=== PATIENT | male | born 1960 | race Caucasian/White ===

== ENCOUNTER 2020-07-26 03:36 | Outpatient (CLI) | payer BC, SELFPAY ==
[2020-07-26 19:05] LABS: SARS-CoV-2 RNA PCR Negative
== END 2020-07-26 03:37 | disposition home or self-care (01) ==
LOC: ANHCOVIDDT 03:37
PROVIDERS: PCP Family Medicine; Visit Provider Internal Medicine Gastroenterology
DX: Z01.812 Encounter for preprocedural laboratory examination (principal); Z20.828 Contact with and (suspected) exposure to other viral communicable diseases
CPT/HCPCS: 87635; C9803; U0003

== ENCOUNTER 2020-07-28 00:54 | Day surgery (SDC) | payer BC, SELFPAY ==
[2020-07-20 15:18] VITALS: BMI 27.0
[2020-07-28 10:05] VITALS: BP 153/85; PULSE 73; RESP 12; TEMP 36.2; O2SAT 99; BMI 28.2
--- NOTE | 2020-07-28 10:22 | WPDGICN ---
Assessment and Plan Assessment and plan (1) History of colon polyps: Code(s): Z86.010 - Personal history of colonic polyps Status: Acute Assessment and Plan: Patient has a history of colon polyps over several previous endoscopies. Most recent exam was 6 years ago. Plan is for surveillance colonoscopy at this time. GI Consult Note Consult date/time: 07/28/20 10:22 HPI: Ceferino Gonzalez is a 60 year old male seen in evaluation at the request of Dr Multani. Patient presents for colonoscopy. Patient has a history of colon polyps. He has had polyps on several previous colonoscopies. Most recently in [place]. Family history is significant his grandfather had colon cancer at age 53. There is no other known family members with colon polyps or cancer. Patient states that his current weight appetite bowel movements are normal. He denies abdominal pain. He denies bleeding. Review of Systems Review of Systems: All systems reviewed & are unremarkable except as noted in HPI and below PMFSH Social History Social History Years smoked: 30 Smoking status: Light tobacco smoker Tobacco type: cigars Alcohol intake: current Drinks per week: 14 Alcohol use details: wine Living arrangements: with family Gender identity (if verbalized by the patient): Male Spiritual care concerns: No Meds Home Medications and Allergies Home Medications Medication Instructions Recorded Confirmed Type aspirin [Adult Low Dose Aspirin] See Rx Instructions .ROUTE .COMPLEX 07/20/20 07/28/20 History lisinopril 30 mg PO DAILY 07/20/20 07/28/20 History Allergies Allergy/AdvReac Type Severity Reaction Status Date / Time No Known Allergies Allergy Verified 07/28/20 10:04 Vital Signs Vital Signs - 24 hr 07/28/20 10:05 Temperature 97.2 F L Pulse Rate 73 Respiratory Rate 12 Blood Pressure 153/85 H Pulse Oximetry 99 Exam Narrative: Exam Narrative: physical exam reveals Vital Signs to be stable. HEENT exam unremarkable. Lungs are clear to auscultation and percussion. Heart is without murmur or extra sounds. Abdominal exam bowel sounds are present soft nontender with no organomegaly. Digital external rectal exam is normal.
[2020-07-28] MEDS: LACTATED RINGERS 1,000 ML 150 ML IV CONT (10:23)
--- NOTE | 2020-07-28 10:27 | WPDANESEPPF ---
Anes - Initial Pre Proc Eval Procedure: Operation Date: 07/28/20 11:00 Proposed Procedures p Screening Colonoscopy - Pablo Funk MD Date/Time: 07/28/20 10:27 Surgeon: Pablo Funk MD Pre Op Diagnosis: Neoplsam Screening/ Hx Colon Polyps Patient Data Age: 60 Gender: M Height: 1.8 m Weight: 91.7 kg Last Vital Signs Temp 36.2 C L 07/28/20 10:05 Pulse 73 07/28/20 10:05 Resp 12 07/28/20 10:05 BP 153/85 H 07/28/20 10:05 Pulse Ox 99 07/28/20 10:05 Allergies Allergy/AdvReac Type Severity Reaction Status Date / Time No Known Allergies Allergy Verified 07/28/20 10:04 Home Medications Medication Instructions Recorded Confirmed Type aspirin [Adult Low Dose Aspirin] See Rx Instructions .ROUTE .COMPLEX 07/20/20 07/28/20 History lisinopril 30 mg PO DAILY 07/20/20 07/28/20 History Patient hx anesthesia problems: none Family hx anesthesia problems: none PMFSH Past Medical History Medical History (Updated 07/28/20 @ 10:28 by Steven Zhou MD) Back pain HTN (hypertension) Overweight (BMI 25.0-29.9) Tobacco abuse Social History Social History Years smoked: 30 Smoking status: Light tobacco smoker Tobacco type: cigars Alcohol intake: current Drinks per week: 14 Alcohol use details: wine Living arrangements: with family Gender identity (if verbalized by the patient): Male Spiritual care concerns: No Anes - Eval Final PreProcedure Day of Procedure 07/28/20 10:27 Patient weight: overweight Heart: regular rate and rhythm Lungs: clear to auscultation and normal air movement Airway: Mallampati scale class II Neurological: alert and oriented Last oral intake: >/= 8 hours ASA classification: II Emergent: no Anesthetic plan: proceed Anesthesia type and monitoring: general GIVS Informed Consent: The patient's anesthetic plan and its attendant risks and benefits were discussed with the patient/family/POA. Questions were solicited and answers provided to the satisfaction of the patient/family/POA.
[2020-07-28] MEDS: SIMETHICONE ORAL SUSPENSION 20 MG/0.3 ML 30 ML BOTTLE 0.6 ML IRRIGATION (11:04)
[2020-07-28 11:12] VITALS: BP 132/80; PULSE 63; RESP 18; O2SAT 100
[2020-07-28 11:22] VITALS: BP 142/97; PULSE 60; RESP 17; O2SAT 98
[2020-07-28 11:32] VITALS: BP 159/92; PULSE 64; RESP 22; O2SAT 99
== END 2020-07-28 11:53 | disposition home or self-care (01) ==
PROVIDERS: PCP Family Medicine; Visit Provider Internal Medicine Gastroenterology
PROC: 0DJD8ZZ Inspection of Lower Intestinal Tract, Via Natural or Artificial Opening Endoscopic (ICD-10-PCS; CPT 45378; principal; 2020-07-28 11:00)
DX: Z12.11 Encounter for screening for malignant neoplasm of colon (principal); Z86.010 Personal history of colon polyps; Z80.0 Family history of malignant neoplasm of digestive organs; F17.290 Nicotine dependence, other tobacco product, uncomplicated; K64.8 Other hemorrhoids
CPT/HCPCS: 45378; J2704; J7120

== ENCOUNTER → 2022-10-16 13:22 | Outpatient (CLI) | payer BC, SELFPAY ==
--- NOTE | ~2022-10-16 | US_ITS ---
EXAMINATION: US soft tissue head and neck DATE: 10/16/2022 13:45 INDICATION: Localized swelling, mass and lump, head. TECHNIQUE: Multiple grayscale and Doppler ultrasound images of the head and neck were obtained. COMPARISON: None FINDINGS: There are normal lymph nodes in the neck bilaterally in the patient's areas of concern in t he submandibular region. IMPRESSION: 1. No abnormal neck mass or lymphadenopathy in the patient's areas of concern in the submandibular re gion. Reviewed, dictated and finalized at location E. TRUCTION SAFETY CONSULTANT IMPRESSION: 1. No abnormal neck mass or lymphadenopathy in the patient's areas of concern i n the submandibular region.
== END ==
PROVIDERS: PCP Family Medicine; Visit Provider Family Medicine
DX: R22.0 Localized swelling, mass and lump, head (principal)
CPT/HCPCS: 76536

== ENCOUNTER 2024-07-27 12:44 | Outpatient (CLI) | payer OTHER, SELFPAY ==
--- NOTE | ~2024-07-27 | XR_ITS ---
XR knee RT 3V 07/27/2024 13:03 Indication: Right knee pain Procedure: 3 views right knee Comparison: No prior studies for comparison. Findings: There is severe tricompartment osteoarthritis of the right knee. No fracture, subluxation o r dislocation. Moderate joint effusion. There is heterotopic ossification in the popliteal space. The re are loose bodies surrounding the joint space, likely secondary to degenerative joint disease. Impression: 1: Severe tricompartment osteoarthritis of the right knee. 2: Moderate joint effusion. Reviewed, dictated and finalized at location B. Impression: 1: Severe tricompartment osteoarthritis of the right knee. 2: Moderate joint effusion.
== END 2024-07-27 12:45 | disposition home or self-care (01) ==
LOC: MICIMG 12:44
PROVIDERS: PCP Family Medicine; Visit Provider Family Medicine
DX: M17.11 Unilateral primary osteoarthritis, right knee (principal); M25.461 Effusion, right knee
CPT/HCPCS: 73562

== ENCOUNTER 2024-09-16 13:18 | Outpatient (CLI) | payer OTHER, SELFPAY ==
--- NOTE | 2024-09-16 13:25 | ECHO_ITS ---
Patient Info Name: Ceferino Gonzalez Age: 64 years : 1960 Gender: Male Ht: 68 in Wt: 200 lbs BSA: 2.11 m2 HR: 101 bpm BP: 151 / 116 mmHg Technical Quality: Fair Exam Date: 09/16/2024 1:31 PM Exam Location: Echo Lab Patient Status: Outpatient Admit Date: 09/16/2024 Staff Ordering Physician: Keegan Calvin MD Summer Clerk: Sully Stein RD Attending Provider: Keegan Calvin MD Exam Type: CA echo doppler color flow Study Info Indications - I48.92 A flutter Complete two-dimensional, color flow and Doppler transthoracic echocardiogram is performed. Summary 1. Complete two-dimensional, color flow and Doppler transthoracic echocardiogram is performed. 2. Left ventricular chamber dimension is moderately enlarged. 3. Left ventricular systolic function is moderately reduced, estimated at 40-45%. 4. The left ventricular diastolic function is normal. 5. E/e' 8 is minimally elevated. 6. Atrial flutter. 7. Left atrial chamber dimension is moderately enlarged. 8. There is mild aortic valve sclerosis. 9. The mitral valve has moderately calcified annulus. 10. There is mild to moderate mitral valve regurgitation. 11. There is mild tricuspid valve regurgitation. 12. Mild pulmonary hypertension, estimated pulmonary arterial systolic pressure is 41 mmHg. 13. There is trace pulmonic regurgitation. Left Ventricle E/e' 8 is minimally elevated. Atrial flutter. Left ventricular chamber dimension is moderately enlarged. Left ventricular systolic function is moderately reduced, estimated at 40-45%. The left ventricular diastolic function is normal. Right Ventricle Right ventricular chamber dimension is normal. Right ventricular systolic function is normal. Left Atria Left atrial chamber dimension is moderately enlarged. Right Atria Right atrial chamber dimension is normal. Aortic Valve The aortic valve is trileaflet. There is mild aortic valve sclerosis. There is no aortic valve stenosis. There is no aortic valve regurgitation. Pulmonic Valve There is trace pulmonic regurgitation. Mitral Valve The mitral valve has moderately calcified annulus. There is no mitral valve stenosis. There is mild to moderate mitral valve regurgitation. Tricuspid Valve There is mild tricuspid valve regurgitation. Mild pulmonary hypertension, estimated pulmonary arterial systolic pressure is 41 mmHg. Pericardium/Pleural There is no pericardial effusion. Inferior Vena Cava Normal inferior vena cava with >50% collapse upon inspiration consistent with normal right atrial pressure, 5 mmHg. Aorta The aortic root size at the sinus of Valsalva is normal. Left Ventricular Outflow Tract Name Value Normal LVOT 2D LVOT Diameter 2.1 cm LVOT Doppler LVOT Peak Gradient 2 mmHg LVOT Mean Gradient 1 mmHg LVOT VTI 11 cm LVOT VTI/AV VTI Ratio 0.7 LVOT Stroke Volume 36 ml LVOT CO 2.9 l/min LVOT CI 1.4 l/min/m2 Pulmonic Valve Name Value Normal PV Doppler PV Peak Gradient 1 mmHg PV Regurgitation Doppler ME Peak End Diastolic Velocity 126 cm/s Mitral Valve Name Value Normal MV Doppler MV Decel Charles 1,004 cm/s2 MV PHT 22 ms MV Area (PHT) 9.9 cm2 4.0-5.0 MV Diastolic Function MV E Peak Velocity 77 cm/s MV A Peak Velocity 26 cm/s MV E/A 2.9 MV Decel Time 77 ms Tricuspid Valve Name Value Normal TV Regurgitation Doppler TR Peak Velocity 299 cm/s TR Peak Gradient 36 mmHg Estimated PAP/RSVP RA Pressure 5 mmHg <=5 PA Systolic Pressure 41 mmHg <36 RV Systolic Pressure 41 mmHg <36 Aorta Name Value Normal Ascending Aorta Ao Root Diameter (MM) 3.0 cm Ao Root Diam Index (MM) 1.4 cm/m2 Aortic Valve Name Value Normal AV Doppler AV Peak Velocity 91 cm/s AV Peak Gradient 3 mmHg AV Mean Gradient 2 mmHg AV VTI 16 cm AV Area (Cont Eq VTI) 2.2 cm2 >=3.0 AV Area (Cont Eq Ruy) 2.6 cm2 AV Regurgitation 2D LVOT Area 3.4 cm2 Ventricles Name Value Normal LV Dimensions 2D/MM IVS Diastolic Thickness (2D) 1.0 cm 0.6-1.0 IVS Diastole Thickness (MM) 0.7 cm 0.6-1.0 LVID Diastole (2D) 5.8 cm 4.2-5.8 LVID Diastole (MM) 6.7 cm 4.2-5.8 LVIW Diastolic Thickness (2D) 1.0 cm 0.6-1.0 LVIW Diastolic Thickness (MM) 0.9 cm 0.6-1.0 LVID Systole (2D) 4.4 cm 2.5-4.0 LVID Systole (MM) 4.6 cm 2.5-4.0 LVOT Diameter 2.1 cm LV Mass (2D Cubed) 228.14 g 88.00-224.00 LV Mass Index (2D Cubed) 108 g/m2 49-115 Relative Wall Thickness (2D) 0.35 LV Mass (MM Cubed) 230.62 g 88.00-224.00 LV Mass Index (MM Cubed) 109 g/m2 49-115 Relative Wall Thickness (MM) 0.26 LV Fractional Shortening/Ejection Fraction 2D/MM LV Fractional Shortening (2D) 24 % 25-43 LV Fractional Shortening (MM) 32 % 25-43 LV EF (MM Teicholz) 58 % 52-72 LV EF (2D Teicholz) 47 % 52-72 LV Diastolic Volume (4C MOD) 114 ml LV EF (4C MOD) 33 % LV Diastolic Volume (2C MOD) 126 ml LV EF (2C MOD) 38 % LV Diastolic Volume (BP MOD) 124 ml 62-150 LV Diastolic Volume Index (BP MOD) 59 ml/m2 34-74 LV Systolic Volume (BP MOD) 77 ml 21-61 LV Systolic Volume Index (BP MOD) 36 ml/m2 11-31 LV EF (BP MOD) 38 % 52-72 LV Diastolic Length (4C) 8.3 cm LV Systolic Length (4C) 8.1 cm LV Stroke Volume (4C MOD) 37 ml Atria Name Value Normal LA Dimensions LA Dimension (MM) 4.0 cm 3.0-4.1 LA Volume (4C A-L) 89 ml LA Volume (BP A-L) 90 ml RA Dimensions RA Area (4C) 21.2 cm2 <=18.0 Report Signatures
== END 2024-09-16 13:19 | disposition home or self-care (01) ==
LOC: ANHCARD 13:19
PROVIDERS: PCP Family Medicine; Visit Provider Family Medicine
DX: I48.92 Unspecified atrial flutter (principal); I08.3 Combined rheumatic disorders of mitral, aortic and tricuspid valves; I27.20 Pulmonary hypertension, unspecified
CPT/HCPCS: 93306

== ENCOUNTER 2024-10-16 12:12 | Outpatient (CLI) | payer OTHER, SELFPAY ==
--- NOTE | ~2024-10-16 | XR_ITS ---
XR ankle RT 2V DATE: 10/16/2024 12:31 INDICATION: Right ankle pain, foot pain TECHNIQUE: AP and lateral views COMPARISON: None FINDINGS: There is a linear oblique fracture of the lateral malleolus with one cortical width lateral displacement, no significant angulation. No other apparent fracture is noted. The ankle mortise appears preserved. Lateral calcaneal enthesopathy. IMPRESSION: Lateral malleolar fracture Reviewed, dictated and finalized at location A. NT SUPPORT CONSULTANT IMPRESSION: Lateral malleolar fracture
== END 2024-10-16 12:13 | disposition home or self-care (01) ==
LOC: MICIMG 12:15
PROVIDERS: PCP Family Medicine; Visit Provider Nurse Practitioner Family
DX: S82.61XA Displaced fracture of lateral malleolus of right fibula, initial encounter for closed fracture (principal); X58.XXXA Exposure to other specified factors, initial encounter
CPT/HCPCS: 73600

== ENCOUNTER 2024-12-24 08:36 | Outpatient (CLI) | payer MEDICARE, SELFPAY ==
--- NOTE | ~2024-12-24 | NM_ITS ---
EXAMINATION: NM trip stress w perfusion DATE: 12/24/2024 11:49 INDICATION: Unspecified atrial flutter TECHNIQUE: Rest images were obtained following intravenous administration of 11.22 mCi Tc99m tetrofos min (Myoview). The patient was infused intravenously with Lexiscan (Regadenoson). Then, 34.6 mCi Tc99 m tetrofosmin (Myoview) was administered intravenously, and stress images were obtained initially in the supine position with repeat post stress imaging obtained in the prone position. Data was reconstr ucted into short axis and horizontal and vertical long axis SPECT images. Gated SPECT images were als o obtained. COMPARISON: None. FINDINGS: There is likely diaphragmatic attenuation artifact along the inferior and inferoseptal wall s on the imaging obtained in the supine position with prominent on the rest imaging and to lesser deg ree in the post stress imaging. This appears to normalize on the post stress imaging obtained in the prone position where there is no definitive perfusion abnormality to suggest ischemia or infarct. Th ere is normal left ventricular chamber size, wall motion and ejection fraction. Left ventricular eje ction fraction measures 51%. IMPRESSION: 1. Normal myocardial perfusion during stress on imaging obtained in the prone position. 2. Left ventricular ejection fraction measuring 51%. Reviewed, dictated and finalized at location A. IMPRESSION: 1. Normal myocardial perfusion during stress on imaging obtained in the prone p osition. 2. Left ventricular ejection fraction measuring 51%.
--- NOTE | 2024-12-24 09:38 | EST_ITS ---
Patient Info Name: Ceferino Gonzalez Age: 64 years : 1960 Gender: Male Ht: 71 in Wt: 205 lbs BSA: 2.18 m2 HR: 88 bpm BP: 151 / 80 mmHg Exam Date: 12/24/2024 9:46 AM Exam Location: Echo Lab Patient Status: Outpatient Admit Date: 12/24/2024 Staff Ordering Physician: Alexander Sahu DO Attending Provider: Alexander Sahu DO Exercise Technologist: shakira segura Exercise Physician: Alexander Sahu DO Exam Type: CA stress trip w NM Study Info A regadenoson stress test was performed. Summary 1. 1. Negative lexiscan stress test for ischemic ST changes by ECG criteria. 2. 2. Stable hemodynamics throughout the test. 3. 3. Nuclear scan to follow and will be reported separately. Please correlate with it. 4. 4. Patient informed of the above results. Protocol: Lexiscan Stress ECG Details Stage: REST Duration (min): 3 min : 34 sec HR (bpm): 86 SBP (mmHg): 151 DBP (mmHg): 80 Stage: REST Duration (min): 13 min : 48 sec HR (bpm): 93 SBP (mmHg): 151 DBP (mmHg): 80 Stage: STAGE 1 Duration (min): 0 min : 59 sec HR (bpm): 106 SBP (mmHg): 151 DBP (mmHg): 80 Stage: RECOVERY Duration (min): 1 min : 0 sec HR (bpm): 106 SBP (mmHg): 151 DBP (mmHg): 80 Stage: RECOVERY Duration (min): 2 min : 0 sec HR (bpm): 102 SBP (mmHg): 151 DBP (mmHg): 80 Stage: RECOVERY Duration (min): 3 min : 0 sec HR (bpm): 93 SBP (mmHg): 135 DBP (mmHg): 88 Stage: RECOVERY Duration (min): 3 min : 18 sec HR (bpm): 102 SBP (mmHg): 135 DBP (mmHg): 88 Rest HR: 93 bpm Peak HR: 119 bpm Rest Sys BP: 151 mmHg Peak Sys BP: 135 mmHg Max Pred HR: 155 bpm % Max Pred HR: 77 % Target HR: 132 bpm Max RPP: 16,065 bpm*mmHg Termination Reason: Completed protocol Cardiac Symptoms: Shortness of breath Total Time: 1 min : 0 sec Rest Hadley BP: 80 mmHg Peak Hadley BP: 88 mmHg Total Dose: 0.4 mg Resting ECG Atrial flutter. Stress ECG No ST changes. Arrhythmias No other arrhythmias. Report Signatures
== END 2024-12-24 08:37 | disposition home or self-care (01) ==
PROVIDERS: PCP Family Medicine; Visit Provider Internal Medicine Cardiovascular Disease
DX: I48.92 Unspecified atrial flutter (principal); I51.9 Heart disease, unspecified; R06.09 Other forms of dyspnea
CPT/HCPCS: 78452; 93017; A9502; J2785

== ENCOUNTER 2025-08-08 10:56 | Day surgery (SDC) | payer MEDICARE, SELFPAY ==
[2025-08-03 12:27] VITALS: BMI 29.5
--- NOTE | 2025-08-04 10:20 | PC.NURSE ---
PT STATES HE HAS NOT RECEIVED HIS BOWEL PREP INSTRUCTIONS FROM DR KLINE'S OFFICE YET. INSTRUCTED PT TO CALL DR KLINE TODAY. OFFICE PHONE NUMBER GIVEN TO PT. PT VERBALIZED UNDERSTANDING.
[2025-08-08 11:24] VITALS: BMI 29.8
[2025-08-08 11:27] VITALS: BP 136/85; PULSE 54; RESP 18; TEMP 36.4; O2SAT 99
--- NOTE | 2025-08-08 11:33 | WPDANESEPPF ---
Anes - Initial Pre Proc Eval Procedure: Operation Date: 08/08/25 12:15 Proposed Procedures p Screening Colonoscopy - Dre Kelly MD Date/Time: 08/08/25 11:33 Surgeon: Dre Kelly MD Pre Op Diagnosis: Personal history of colon polyps, unspecified Patient Data Age: 65 Gender: M Height: 1.8 m Weight: 97.1 kg Last Vital Signs Temp 97.5 F L 08/08/25 11:27 Pulse 54 L 08/08/25 11:27 Resp 18 08/08/25 11:27 BP 136/85 08/08/25 11:27 Pulse Ox 99 08/08/25 11:27 O2 Del Method Room Air 08/08/25 11:27 Allergies Allergy/AdvReac Type Severity Reaction Status Date / Time No Known Allergies Allergy Verified 08/08/25 11:06 Home Medications ?Medication ?Instructions ?Recorded ?Confirmed ?Type cholecalciferol (vitamin D3) 50 50 mcg PO DAILY 04/02/22 08/08/25 History mcg (2,000 unit) capsule multivitamin 1 tablet PO DAILY 04/02/22 08/08/25 History zinc 50 mg tablet 50 mg PO DAILY 04/02/22 08/08/25 History garlic 500 mg capsule 500 mg PO DAILY 02/10/24 08/08/25 History aspirin 325 mg tablet 325 mg PO DAILY #90 tabs 08/12/24 08/08/25 Rx lisinopril 30 mg tablet 30 mg PO DAILY #90 tabs 02/11/25 08/08/25 Rx amiodarone 200 mg tablet 200 mg PO DAILY #30 tabs 04/21/25 08/08/25 Rx amlodipine 10 mg tablet 10 mg PO DAILY #30 tabs 04/21/25 08/08/25 Rx diclofenac sodium 50 mg 50 mg PO BID #60 tabs 05/25/25 08/08/25 Rx tablet,delayed release metoprolol tartrate 50 mg tablet 50 mg PO BID 07/26/25 08/08/25 History oxybutynin chloride 5 mg 5 mg PO DAILY #90 tabs 07/26/25 08/08/25 Rx tablet,extended release 24 hr rosuvastatin 5 mg tablet 5 mg PO DAILY #90 tabs 08/05/25 08/08/25 Rx Patient hx anesthesia problems: none Family hx anesthesia problems: none Results Review: All pre-operative results and documents have been reviewed as part of the pre-operative evaluation. [facility] Past Medical History Medical History Chronic venous insufficiency of lower extremity Fracture of lateral malleolus of right ankle (~10/2024) managed conservatively Systolic dysfunction Osteoarthritis of right knee Varicose veins of right lower extremity Dyslipidemia Essential (primary) hypertension Family history of colon cancer Tobacco abuse Overweight (BMI 25.0-29.9) Back pain History of colon polyps Family History Family History Father Lung cancer Mother Breast cancer Thyroid disorder Sibling Hypertension Sibling Hypertension Grandparent Breast cancer Grandparent Carcinoma of colon Grandparent Diabetes mellitus Grandparent Alcoholism Social History Social History Years smoked: 30 Smoking status: Current some day smoker Tobacco type: cigars Alcohol intake: current Drinks per week: 10 Alcohol use details: wine Substance use: current Substance use type: marijuana Other substance usage details: 3-4 times weekly Lack of Transportation: No Lack of Food: Never True Current Housing: I Have Housing Concerned About Future Housing: No Difficulty Paying Gas/Electric Bills: No Difficulty Paying for Meds: No Currently Unemployed: No Education: Bachelor's Degree Difficulty w/ Childcare or Family Care: No Living arrangements: with family Occupation/Education: occupation 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 Gender identity (if verbalized by the patient): Male Sexual Orientation (if Verbalized by the Patient): Straight or Heterosexual Spiritual care concerns: No Agree to blood products: Yes Anes - Eval Final PreProcedure Day of Procedure 08/08/25 11:33 Heart: regular rate and rhythm and bradycardia Lungs: clear to auscultation Airway: Mallampati scale class III Neurological: alert and oriented Last oral intake: >/= 8 hours ASA classification: III Anesthetic plan: proceed Anesthesia type and monitoring: monitored anesthesia care Results Review: All pre-operative results and documents have been reviewed as part of the pre-operative evaluation. Informed Consent: The patient's anesthetic plan and its attendant risks and benefits were discussed with the patient/family/POA. Questions were solicited and answers provided to the satisfaction of the patient/family/POA.
[2025-08-08] MEDS: LACTATED RINGERS 1,000 ML 150 ML IV CONT (11:45)
--- NOTE | 2025-08-08 11:45 | SUR.PREOP ---
1130; DR STEELE NOTIFIED OF PT PREOP HEART RATE OF 48-56. PT TOOK HIS METOPROLOL, AMLODIPINE, AND AMIODARONE THIS MORNING.
--- NOTE | 2025-08-08 12:13 | PM.IMHP ---
H&P: HPI History of Present Illness Date/Time: 08/08/25 12:13 Chief Complaint: History of colon polyps Narrative: The patient has a history of colonic polyps, the last colonoscopy was 5 years ago. Review of Systems Review of Systems: All systems reviewed & are unremarkable except as noted in HPI and below PMFSH Past Medical History Medical History Chronic venous insufficiency of lower extremity Fracture of lateral malleolus of right ankle (~10/2024) managed conservatively Systolic dysfunction Osteoarthritis of right knee Varicose veins of right lower extremity Dyslipidemia Essential (primary) hypertension Family history of colon cancer Tobacco abuse Overweight (BMI 25.0-29.9) Back pain History of colon polyps Family History Family History Father Lung cancer Mother Breast cancer Thyroid disorder Sibling Hypertension Sibling Hypertension Grandparent Breast cancer Grandparent Carcinoma of colon Grandparent Diabetes mellitus Grandparent Alcoholism Social History Social History Years smoked: 30 Smoking status: Current some day smoker Tobacco type: cigars Alcohol intake: current Drinks per week: 10 Alcohol use details: wine Substance use: current Substance use type: marijuana Other substance usage details: 3-4 times weekly Lack of Transportation: No Lack of Food: Never True Current Housing: I Have Housing Concerned About Future Housing: No Difficulty Paying Gas/Electric Bills: No Difficulty Paying for Meds: No Currently Unemployed: No Education: Bachelor's Degree Difficulty w/ Childcare or Family Care: No Living arrangements: with family Occupation/Education: occupation 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 Gender identity (if verbalized by the patient): Male Sexual Orientation (if Verbalized by the Patient): Straight or Heterosexual Spiritual care concerns: No Agree to blood products: Yes Meds Home Medications and Allergies Home Medications ?Medication ?Instructions ?Recorded ?Confirmed ?Type cholecalciferol (vitamin D3) 50 50 mcg PO DAILY 04/02/22 08/08/25 History mcg (2,000 unit) capsule multivitamin 1 tablet PO DAILY 04/02/22 08/08/25 History zinc 50 mg tablet 50 mg PO DAILY 04/02/22 08/08/25 History garlic 500 mg capsule 500 mg PO DAILY 02/10/24 08/08/25 History aspirin 325 mg tablet 325 mg PO DAILY #90 tabs 08/12/24 08/08/25 Rx lisinopril 30 mg tablet 30 mg PO DAILY #90 tabs 02/11/25 08/08/25 Rx amiodarone 200 mg tablet 200 mg PO DAILY #30 tabs 04/21/25 08/08/25 Rx amlodipine 10 mg tablet 10 mg PO DAILY #30 tabs 04/21/25 08/08/25 Rx diclofenac sodium 50 mg 50 mg PO BID #60 tabs 05/25/25 08/08/25 Rx tablet,delayed release metoprolol tartrate 50 mg tablet 50 mg PO BID 07/26/25 08/08/25 History oxybutynin chloride 5 mg 5 mg PO DAILY #90 tabs 07/26/25 08/08/25 Rx tablet,extended release 24 hr rosuvastatin 5 mg tablet 5 mg PO DAILY #90 tabs 08/05/25 08/08/25 Rx Allergies Allergy/AdvReac Type Severity Reaction Status Date / Time No Known Allergies Allergy Verified 08/08/25 11:06 Vital Signs Vital Signs - 24 hr 08/08/25 11:27 Temperature 97.5 F L Pulse Rate 54 L Respiratory Rate 18 Blood Pressure 136/85 Pulse Oximetry 99 Oxygen Delivery Room Air Exam Const: General: cooperative and healthy appearing Resp: Effort & Inspection: normal respiratory effort and able to speak in complete sentences Auscultation: clear to auscultation bilaterally Cardio: Rate: regular rate Rhythm: regular rhythm GI: Inspection: normal to inspection GI Palp: No No hepatosplenomegaly present Auscultation: normal bowel sounds Rectal Exam: deferred Skin: General skin exam: normal color Psych: Appearance: grossly normal Mental Status: mental status grossly normal Assessment and Plan Assessment and plan (1) History of colonic polyps: Code(s): Z86.0100 - Personal history of colon polyps, unspecified Status: Acute Assessment and Plan: The patient is deemed a good candidate for the procedure. Consent signed. Will proceed.
--- NOTE | 2025-08-08 12:39 | WPDANESPN ---
Anes - Prog Note Post-Op Date/Time: 08/08/25 12:39 Vital Signs: Last Vital Signs Temp 97.5 F L 08/08/25 11:27 Pulse 54 L 08/08/25 11:27 Resp 18 08/08/25 11:27 BP 136/85 08/08/25 11:27 Pulse Ox 99 08/08/25 11:27 O2 Del Method Room Air 08/08/25 11:27 Pain Score (VAS): no Patient Feedback: Patient satisfied with anesthetic care.
[2025-08-08 12:42] VITALS: BP 85/69; PULSE 63; RESP 16; O2SAT 100
[2025-08-08 12:52] VITALS: BP 108/78; PULSE 66; RESP 16; O2SAT 97
[2025-08-08 13:02] VITALS: BP 113/79; PULSE 60; RESP 16; O2SAT 99
== END 2025-08-08 13:15 | disposition home or self-care (01) ==
PROVIDERS: PCP Family Medicine; Referring Provider Family Medicine; Visit Provider Internal Medicine Gastroenterology
PROC: 0DJD8ZZ Inspection of Lower Intestinal Tract, Via Natural or Artificial Opening Endoscopic (ICD-10-PCS; CPT 45378; principal; 2025-08-08 12:15)
DX: Z12.11 Encounter for screening for malignant neoplasm of colon (principal); K64.8 Other hemorrhoids; Z86.0100 Personal history of colon polyps, unspecified
CPT/HCPCS: G0105

== ENCOUNTER 2025-08-09 11:04 | Outpatient (CLI) | payer MEDICARE, SELFPAY | END 2025-08-09 11:05 | disposition home or self-care (01) | LOC: ANHAUDIO 11:04 | PROVIDERS: PCP Family Medicine; Visit Provider Family Medicine | DX: H90.72 Mixed conductive and sensorineural hearing loss, unilateral, left ear, with unrestricted hearing on the contralateral side (principal); H74.8X3 Other specified disorders of middle ear and mastoid, bilateral; Z82.2 Family history of deafness and hearing loss | CPT/HCPCS: 92557; 92567 ==

== ENCOUNTER 2025-08-16 08:06 | Outpatient (CLI) | payer MEDICARE, SELFPAY ==
--- OUTSIDE RECORDS SUMMARY | 2025-08-16 08:13 | XMS_ITS | Patient Health Record ---
Author Organization [facility] Address [address] [place] [address] Support Name Relationship Address Phone Davina Farrell Emergency Contact [address] [place] [address] Ceferino Gonzalez Guarantor Unknown [phone] Reason For Referral No Information Medications Medication SIG (Take, Route, Fr equency, Duration) Notes Start Date End Date Status Lisinopril 30 MG 1 tablet Orally Once a day; Duration: 30 day(s) 01/23/2018 Active Problems Problem Type SNOMED Code ICD Code Onset Dates Problem Status W/U Status Risk Notes Problem Obesity (148696718) Obesity, unspecified (E66.9) Active confirmed Problem Type II diabetes mellitus without complication (955341772) Diabetes (E11.9) Active confirmed Problem Essential hypertensi on (64378252) Essential hypertension (I10) Active confirmed Problem Pure hypercholesterolemia (881392512) High blood cholesterol (E78.00) Active confirmed Plan Of Treatment Pending Test Test Name Order Date 1000 CBC W/AUTO DIFF WITH PLATELETS 07/07 4958 VITAMIN D, 25 OH 07/29/2017 2606 PSA, TOTAL 07/29/2017 9179 COMPREHENSIVE METABOLIC PANEL 07/29 9179 COMPREHENSIVE METABOLIC PANEL 01/23 2835 TSH 07/29/2017 2823 FREE T4 (THYROXINE) 07/29/2017 2708 HEMOGLOBIN A1c 01/23/2018 2708 HEMOGLOBIN A1c 07/29/2017 173 LIPID PANEL 07/29/2017 173 LIPID PANEL 01/23/2018 Insurance Providers Payer Name Payer Address Payer Phone Subscriber Number Group Number Insured Name Patient Relationship to Insured Coverage Start Date Coverage End Date [employer] [facility] [address] [address] [place] [phone] [id number] Ceferino Gonzalez Self - patient is the insured 8 Medical (General) History Medical History History ICD Code Hypertension Surgical History Surgery Date(Month/Year) Removal of polyps from colon during [facility] noscopy 1999 Removal of polyps from colon during [facility] noscopy 2009
[2025-08-24 22:58] VITALS: BMI 29.2
--- NOTE | 2025-08-24 22:58 | WPDHOMESLEEP ---
Sleep Study - Home Unattended Date of Study: 08/16/25 Ordering Provider: Alexander Sahu DO Interpreting Provider: Allyson Samuels DO Home Sleep Study Type: Watch PAT Height: 1.8 m Weight: 95.254 kg Body Mass Index: 29.2 Neck Circumference (inches): 19 Reason for Sleep Study Loud snoring Sleep History The patient is a 65 year old with hypertension, atrial flutter and diastolic dysfunction that had a sleep study ordered by his primary care physician for evaluation of sleep apnea. The patient did not complete his sleep history questionnaire. [facility] Past Medical History Medical History Chronic venous insufficiency of lower extremity Fracture of lateral malleolus of right ankle (~10/2024) managed conservatively Systolic dysfunction Osteoarthritis of right knee Varicose veins of right lower extremity Dyslipidemia Essential (primary) hypertension Family history of colon cancer Tobacco abuse Overweight (BMI 25.0-29.9) Back pain History of colon polyps Family History Family History Father Lung cancer Mother Breast cancer Thyroid disorder Sibling Hypertension Sibling Hypertension Grandparent Breast cancer Grandparent Carcinoma of colon Grandparent Diabetes mellitus Grandparent Alcoholism Social History Social History Years smoked: 30 Smoking status: Current some day smoker Tobacco type: cigars Alcohol intake: current Drinks per week: 10 Alcohol use details: wine Substance use: current Substance use type: marijuana Other substance usage details: 3-4 times weekly Lack of Transportation: No Lack of Food: Never True Current Housing: I Have Housing Concerned About Future Housing: No Difficulty Paying Gas/Electric Bills: No Difficulty Paying for Meds: No Currently Unemployed: No Education: Bachelor's Degree Difficulty w/ Childcare or Family Care: No Living arrangements: with family Occupation/Education: occupation 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 Gender identity (if verbalized by the patient): Male Sexual Orientation (if Verbalized by the Patient): Straight or Heterosexual Spiritual care concerns: No Agree to blood products: Yes Medications Home Medications ?Medication ?Instructions ?Recorded ?Confirmed ?Type cholecalciferol (vitamin D3) 50 50 mcg PO DAILY 04/02/22 08/08/25 History mcg (2,000 unit) capsule multivitamin 1 tablet PO DAILY 04/02/22 08/08/25 History zinc 50 mg tablet 50 mg PO DAILY 04/02/22 08/08/25 History garlic 500 mg capsule 500 mg PO DAILY 02/10/24 08/08/25 History aspirin 325 mg tablet 325 mg PO DAILY #90 tabs 08/12/24 08/08/25 Rx lisinopril 30 mg tablet 30 mg PO DAILY #90 tabs 02/11/25 08/08/25 Rx amiodarone 200 mg tablet 200 mg PO DAILY #30 tabs 04/21/25 08/08/25 Rx amlodipine 10 mg tablet 10 mg PO DAILY #30 tabs 04/21/25 08/08/25 Rx diclofenac sodium 50 mg 50 mg PO BID #60 tabs 05/25/25 08/08/25 Rx tablet,delayed release metoprolol tartrate 50 mg tablet 50 mg PO BID 07/26/25 08/08/25 History oxybutynin chloride 5 mg 5 mg PO DAILY #90 tabs 07/26/25 08/08/25 Rx tablet,extended release 24 hr rosuvastatin 5 mg tablet 5 mg PO DAILY #90 tabs 08/05/25 08/08/25 Rx Sleep Procedure The sleep study was completed using XumiiT a technically adequate device with seven channels: peripheral arterial tone, actigraphy, body position, snore, respiratory movement, pulse oximetry, sleep staging, and heart rate. Prior to using the device, the patient received verbal and written instructions for its application and was provided with the help desk phone number for additional telephonic instruction with 24-hour availability of qualified personnel to answer questions. The study was scored using CMS guidelines. Sleep Architecture The total recording time is 6 hrs, 0 min. The total sleep time is 5 hrs, 28 min. Sleep latency is 6 minutes. REM latency is 152 minutes. The patient had 5 episodes of waking. Sleep architecture shows 13.6% deep sleep, 72.3% light sleep, and (as % Total Sleep Time) showed NREM (Light 72.3%; Deep 13.6%), and a 14.2% stage REM. The patient spent 0.6% of total sleep time in the supine position. Sleep efficiency was 91.11. Respiratory Analysis The overall AHI (pAHI 4%:) is 49.2. The overall AHI (pAHI 3%:) is 55.3. The central AHI is 6.1. The AHI was 55.8 in NREM and 51.1 in REM sleep. The AHI was N/A in Supine and 55.4 in Non-supine sleep. Percent of Shalom Doyle respirations is 33.7. Oximetry Data The oxygen desaturation index (EMILY 4%:) is 40.7. The mean saturation is 93%, and the lowest saturation is 85%. Time spent with saturation < 88% is 2.3 minutes. Snoring Profile Snoring average intensity is 57 dB. The patient snored above 45 decibels for 259.8 minutes, 79.1% of sleep time. Cardiac Profile The average pulse rate is 71 beats per minutes. The lowest pulse rate is 41 bpm. The highest pulse rate reported is 113 bpm. Suspected Afib total duration is 0:13:04, (h:m:sec). The longest Afibevent duration is 0:02:19. Premature beats occur 1.7 per minute. Assessment and Plan Assessment and Plan (1) DEEPALI (obstructive sleep apnea): Code(s): G47.33 - Obstructive sleep apnea (adult) (pediatric) Status: Acute Assessment and Plan: The patient had an overall AHI of 49.2 with desaturation down to 85%. This is consistent with severe sleep apnea. The patient had an overall AHI of 6.1, which is elevated (normal <5). Due to the patient's severity of sleep apnea, elevated central apnea index and presence of 33.7% of total recording time with Shalom-Doyle respirations, the patient is not a candidate for AutoPAP. AutoPAP can increase the frequency and severity of central apneas. I recommend that the patient have a CPAP Titration with the use of a hypnotic to ensure we obtain enough sleep data and find an optimal pressure setting. (2) Shalom-Doyle respiration: Code(s): R06.3 - Periodic breathing Status: Acute Assessment and Plan: The patient spent 33.7% of total recording time with Shalom-Doyle respirations. I recommend that the patient have an echocardiogram done within the past 6 months to rule out cardiogenic causes of central apneas and Shalom-Doyle respirations. Data The data obtained during this sleep study is adequate for interpretation. Certification This sleep study has been reviewed by a board certified sleep medicine physician.
== END 2025-08-18 15:50 | disposition home or self-care (01) ==
PROVIDERS: PCP Family Medicine; Visit Provider Internal Medicine Cardiovascular Disease
DX: G47.10 Hypersomnia, unspecified (principal); G47.33 Obstructive sleep apnea (adult) (pediatric)
CPT/HCPCS: 95800; 95806